=== PATIENT | female | born 1980 ===

== ENCOUNTER 2018-11-24 12:18 | Emergency (ER) | payer MEDICAID ==
[~2018-11-24] VITALS: Ht 175.3 cm; Wt 74.5 kg
[2018-11-24] MEDS ORDERED: ZINC10LO6 PO (12:24)
[2018-11-24] MEDS ORDERED: CEPHALEXIN MONOHYDRATE 500 MG CAPSULE PO ONE (14:15)
[2018-11-24 15:30] VITALS: BP 115/73
== END 2018-11-24 15:38 | disposition home or self-care (01) ==
LOC: EMS 12:22
DX: T25.211A Burn of second degree of right ankle, initial encounter (principal); X08.8XXA Exposure to other specified smoke, fire and flames, initial encounter; Y93.89 Activity, other specified; Y92.89 Other specified places as the place of occurrence of the external cause; Y99.8 Other external cause status
CPT/HCPCS: 16020